=== PATIENT | female | born 1960 | race Caucasian/White ===

== ENCOUNTER 2018-08-25 17:22 | Emergency (ER) | payer OTHER, SELFPAY ==
[2018-08-25 18:40] LABS: Anion Gap 14 mmol/L (10-20); BUN (Urea Nitrogen) 10 mg/dL (9.8-20.1); Calc. Creatinine Clearance 0 mL/min (70-130); Calcium 10.2 mg/dL (7.8-10.44); Carbon Dioxide 25 mmol/L (22-29); Chloride 101 mmol/L (98-107); Estimated GFR-MDRD 75; Glucose 92 mg/dL (70-105); Potassium 4.1 mmol/L (3.5-5.1); Sodium 136 mmol/L (136-145)
--- NOTE | 2018-08-25 19:12 | CT ---
CT OF BRAIN PERFORMED WITHOUT CONTRAST ENHANCEMENT: 08/25/18 HISTORY: Hypertension, dizziness and headache. The ventricular and cisternal system is within normal limits. There is no signs of intracerebral hemo rrhage or extra-axial fluid collections. Mastoid air cells and visualized sinuses are clear. IMPRESSION: No acute intracranial abnormalities. POS: [facility]
== END 2018-08-25 20:00 | disposition home or self-care (01) ==
LOC: ERS 17:22
DX: I10 Essential (primary) hypertension (principal); Z79.891 Long term (current) use of opiate analgesic
CPT/HCPCS: 36415; 70450; 80048; 84484; 93005

== ENCOUNTER 2021-11-02 08:11 | Outpatient (CLI) | payer OTHER | END 2021-11-02 08:12 | disposition home or self-care (01) | LOC: CT 08:11 | PROVIDERS: ATTEND Internal Medicine Hematology & Oncology | DX: C21.1 Malignant neoplasm of anal canal (principal); Z90.5 Acquired absence of kidney | CPT/HCPCS: 71260; 74177; 82565 ==

== ENCOUNTER 2021-11-10 08:00 | Outpatient (CLI) | payer OTHER | END 2021-11-10 08:01 | disposition home or self-care (01) | LOC: PET 08:00 | PROVIDERS: ATTEND Internal Medicine Hematology & Oncology | DX: C21.1 Malignant neoplasm of anal canal (principal); R93.7 Abnormal findings on diagnostic imaging of other parts of musculoskeletal system | CPT/HCPCS: 78815; A9552 ==

== ENCOUNTER 2024-02-02 14:34 | Outpatient (CLI) | payer OTHER | END 2024-02-02 14:35 | disposition home or self-care (01) | LOC: SCSRAD 14:34 | PROVIDERS: ATTEND Family Medicine | DX: M25.561 Pain in right knee (principal); M25.562 Pain in left knee; M17.11 Unilateral primary osteoarthritis, right knee; M25.461 Effusion, right knee; M25.462 Effusion, left knee ==